=== PATIENT | male | born 2000 | race Two or more races ===

== ENCOUNTER 2021-08-09 21:54 | Emergency (ER) | payer OTHER ==
[2021-08-09 22:06] VITALS: BP 126/74; PULSE 67; TEMP 98; BMI 26.6
[2021-08-09] MEDS ORDERED: IBUPROFEN 600 MG TABLET (FP) PO ONE (23:37)
== END 2021-08-10 00:50 | disposition home or self-care (01) ==
LOC: JERFT 21:54 → JER 21:54
DX: M72.2 Plantar fascial fibromatosis (principal)
CPT/HCPCS: 73630-TC-RT-FY; 99283-25